=== PATIENT | female | born 2000 | race Two or more races ===

== ENCOUNTER 2025-03-23 21:40 | Emergency (ER) | payer MEDICAID, OTHER ==
[~2025-03-23] VITALS: Ht 157.5 cm; Wt 59.0 kg
[~2025-03-23 21:40] MED LIST: AMOX-427 PO; IBUP-1955 PO
[2025-03-23 22:27] LABS: *URINE HCG, QUAL NEGATIVE (NEGATIVE)
[2025-03-23] MEDS ORDERED: DOXYCYCLINE HYCLATE 100 MG TABLET ONE (22:38)
[2025-03-23] MEDS ORDERED: CEFTRIAXONE 500 MG VIAL ONE (22:38)
[2025-03-23] MEDS ORDERED: LIDOCAINE HCL 1% 20 ML VIAL ONE (22:38)
[2025-03-23] MEDS ORDERED: DOXY100C5 PO (22:40)
[2025-03-23] MEDS: DOXYCYCLINE HYCLATE 100 MG TABLET PO ONE (22:51)
[2025-03-23] MEDS: CEFTRIAXONE 500 MG VIAL IM ONE (22:51)
[2025-03-23 23:20] VITALS: BP 128/82; O2SAT 98
== END 2025-03-23 23:20 | disposition home or self-care (01) ==
LOC: ER 21:45
DX: N92.1 Excessive and frequent menstruation with irregular cycle (principal); F12.90 Cannabis use, unspecified, uncomplicated; M54.50 Low back pain, unspecified; G43.909 Migraine, unspecified, not intractable, without status migrainosus; Z20.2 Contact with and (suspected) exposure to infections with a predominantly sexual mode of transmission; Z87.2 Personal history of diseases of the skin and subcutaneous tissue
CPT/HCPCS: 99284; 84703; 96372; J0696; J3490; A4606; A4663

== ENCOUNTER 2025-05-02 18:58 | Emergency (ER) | payer MEDICAID ==
[~2025-05-02] VITALS: Ht 157.5 cm; Wt 60.3 kg
[~2025-05-02 18:58] MED LIST changes: +DOXY100C5 PO
[2025-05-02 19:58] LABS: *BILIRUBIN,URIN NEGATIVE (NEGATIVE); *BLOOD, URINE NEGATIVE (NEGATIVE); *CLARITY,URINE CLEAR (CLEAR); *COLOR,URINE YELLOW (YELLOW); *KETONES,URINE NEGATIVE (NEGATIVE); *PROTEIN,URINE NEGATIVE (NEGATIVE); *UROBILINOGEN,URINE 0.2 E.U./dl (NORMAL); LEUKOCYTE ESTERASE ,URINE NEGATIVE (NEGATIVE); NITRITE, URINE NEGATIVE (NEGATIVE); UGLUCOSE NEGATIVE (NEGATIVE)
[2025-05-02 19:58] LABS: BASOPHILS % (AUTO) 0.3 % (0.0-2.0); EOSINOPHILS # (AUTO) 0.1 K/uL (0.0-0.7); EOSINOPHILS % (AUTO) 0.9 % (0.0-7.0); HEMATOCRIT 35.5 % (31.2-41.9); HEMOGLOBIN 12.2 g/dL (10.9-14.3); LYMPHOCYTES # (AUTO) 1.6 K/uL (0.8-4.8); LYMPHOCYTES % (AUTO) 21.9 % (20.5-51.5); MEAN CORPUSCULAR HEMOGLOBIN 31.3 uug (24.7-32.8); MEAN CORPUSCULAR HGB CONC 34 g/dL (32.3-35.6); MEAN CORPUSCULAR VOLUME 91.2 fL (75.5-95.3); MONOCYTES # (AUTO) 0.5 K/uL (0.1-1.30); MONOCYTES % (AUTO) 7.1 % (0.0-11.0); NEUTROPHILS # (AUTO) 5.2 K/uL (1.8-8.9); NEUTROPHILS % (AUTO) 69.8 % (38.5-71.5); PLATELET COUNT (AUTO) 238 K/uL (179-408); RED CELL DISTRIBUTION WIDTH 12.3 % (12.3-17.7); WHITE BLOOD COUNT (AUTO) 7.4 K/uL (3.8-11.8)
[2025-05-02 19:59] LABS: DIFFERENTIAL COMMENT 1
[2025-05-02 20:01] LABS: *URINE HCG, QUAL NEGATIVE (NEGATIVE)
[2025-05-02 20:09] LABS: ALANINE AMINOTRANSFERASE 10 U/L (14-59); ALBUMIN 3.5 g/dL (3.4-5.0); ALKALINE PHOSPHATASE 108 U/L (50-136); ASPARTATE AMINOTRANSFERASE 14 U/L (15-37); BILIRUBIN,DIRECT < 0.1 mg/dL (0.0-0.2); BILIRUBIN,TOTAL 0.3 mg/dL (0.2-1.0); CALCIUM 9.3 mg/dL (8.5-10.1); CARBON DIOXIDE 25 mmol/L (21-32); CHLORIDE 107 mmol/L (98-107); CREATININE 0.6 mg/dL (0.6-1.3); GLUCOSE 97 mg/dL (74-106); LIPASE 61 U/L (16-77); POTASSIUM 3.8 mmol/L (3.5-5.1); SODIUM SERUM 142 mmol/L (136-145); TOTAL PROTEIN, SERUM 7.1 g/dL (6.4-8.2); UREA NITROGEN, BLOOD 10 mg/dL (7-18)
[2025-05-02 20:23] LABS: HIV-1 p24 ANTIGEN NON REACTIVE (NONREACTIVE); HIV-1/2 ANTIBODY NON REACTIVE (NONREACTIVE)
[2025-05-02] MEDS ORDERED: LIDOCAINE HCL 1% 20 ML VIAL ONE (20:43)
[2025-05-02] MEDS ORDERED: METRONIDAZOLE 500 MG TABLET ONE (20:43)
[2025-05-02] MEDS ORDERED: DOXYCYCLINE HYCLATE 100 MG TABLET ONE (20:43)
[2025-05-02] MEDS ORDERED: CEFTRIAXONE 500 MG VIAL ONE (20:43)
[2025-05-02] MEDS: CEFTRIAXONE 500 MG VIAL IM ONE (20:51)
[2025-05-02] MEDS: DOXYCYCLINE HYCLATE 100 MG TABLET PO ONE (20:51)
[2025-05-02] MEDS: METRONIDAZOLE 500 MG TABLET PO ONE (20:51)
[2025-05-02] MEDS ORDERED: DOXY100C5 PO (22:03)
[2025-05-02] MEDS ORDERED: METR500T PO (22:03)
[2025-05-02] MEDS ORDERED: ONDA4TAB11 PO (22:03)
[2025-05-02] MEDS ORDERED: IBUPROFEN 600 MG TABLET ONE (22:05)
[2025-05-02] MEDS ORDERED: ONDANSETRON ODT 4 MG TAB.RAPDIS ONE (22:05)
[2025-05-02] MEDS: ONDANSETRON ODT 4 MG TAB.RAPDIS SL ONE (22:07)
[2025-05-02] MEDS: IBUPROFEN 600 MG TABLET PO ONE (22:07)
[2025-05-02 22:11] VITALS: BP 128/70; O2SAT 99
[2025-05-04 03:07] LABS: HEPATITIS B CORE AB, IgM Negative (Negative); HEPATITIS B SURFACE AG Negative (Negative); HEPATITIS C VIRUS ANTIBODY Non Reactive (Non Reactive)
[2025-05-04 13:07] LABS: *CHLAMYDIA NAA Negative (Negative); *GC NAA Negative (Negative); *TRIC.VAG. NAA Negative (Negative)
== END 2025-05-02 22:11 | disposition home or self-care (01) ==
LOC: ER 19:01
DX: N93.0 Postcoital and contact bleeding (principal); N89.8 Other specified noninflammatory disorders of vagina; R10.2 Pelvic and perineal pain; R11.0 Nausea; R19.7 Diarrhea, unspecified; F17.200 Nicotine dependence, unspecified, uncomplicated; G43.909 Migraine, unspecified, not intractable, without status migrainosus; F41.9 Anxiety disorder, unspecified; Z72.51 High risk heterosexual behavior
CPT/HCPCS: 99285; 76856; 86592; 80076; 80048; 81003; 87806; 84703; 83690; 85025; 87210; 36415; 96372; 86803; 87340; 87491; 86705; J0696; J3490; A4606; A4663; Q0162